=== PATIENT | female | born 1955 | race Caucasian/White ===

== ENCOUNTER 2017-09-15 09:52 | Emergency (ER) | payer BC ==
[~2017-09-15] VITALS: Ht 165.1 cm; Wt 62.0 kg
[2017-09-15] MEDS ORDERED: PERCOCET 5/31 TABLET PO (12:54)
[2017-09-15] MEDS ORDERED: NAPROSYN500 MG PO (12:54)
[2017-09-15 13:04] VITALS: BP 1007/68
== END 2017-09-15 13:45 | disposition home or self-care (01) ==
LOC: EME 09:52
DX: S82.042A Displaced comminuted fracture of left patella, initial encounter for closed fracture (principal); W18.30XA Fall on same level, unspecified, initial encounter; Y93.01 Activity, walking, marching and hiking; Z87.891 Personal history of nicotine dependence
CPT/HCPCS: 73564; 99281; 99284